=== PATIENT | male | born 1965 | race Caucasian/White ===

== ENCOUNTER → 2017-12-28 | Outpatient (CLI) | payer OTHER ==
[~2017-12-28] MED LIST: AMLO-99 PO; ATOR10TA24 PO; BLOO-1318 MC; BLOO-1337 MC; CEFU500T10 PO; HYDR-4309 PO; LANC-1149 MC; METO200T12 PO; MUPI15CR10 TP; NICO-218 TD; OMEP-125 PO; TRAM-420 PO; TRIA15CR40 TP; ZOLP-358 PO; [UNRECOGNIZED DRUG - CODE] PO
[2017-12-28 06:21] LABS: PLATELET COUNT, AUTOMATED 150 K/uL (150-450)
[2017-12-28 09:21] LABS: LDL CHOLESTEROL 54 mg/dl
== END ==
LOC: LAB 05:57
PROVIDERS: ATTEND Internal Medicine
DX: E11.9 Type 2 diabetes mellitus without complications (principal); E78.5 Hyperlipidemia, unspecified; N18.3 Chronic kidney disease, stage 3 (moderate); R09.02 Hypoxemia; R53.83 Other fatigue; E83.119 Hemochromatosis, unspecified; R94.5 Abnormal results of liver function studies
CPT/HCPCS: 36415; 82040; 82043; 82247; 82310; 82374; 82435; 82465; 82565; 82728; 82947; 83036; 83540; 83550; 83718; 84075; 84132; 84155; 84295; 84443; 84450; 84460; 84478; 84520; 85025

== ENCOUNTER 2018-05-14 16:15 | Outpatient (RCR) | payer OTHER ==
--- NOTE | 2018-05-04 09:02 | PT INITIAL EVALUATION ---
MEDICAL DIAGNOSIS: Bilateral Plantar Fasciitis TREATMENT DIAGNOSIS: Bilateral Plantar Fasciitis DATE OF ONSET: 01/04/18 SUBJECTIVE: Driss is a 52 year-old male presenting to physical therapy following 4 month onset of bilateral foot pain. Initially, pt went to a massage operator where he received steroid injections and was started on insoles. Pt reports that initially the pain got better, but then came back and now he can't even tolerate wearing his insoles. Pt reports that he also was given some stretches, but didn't do his homework very often. Pt reports that pain is located bilaterally on the sole of his foot near the heel with pain worst in the L foot at 9-10/10 and in the R at 3-4/10. Pain is improved with icing and worsens with initiation of activity, or at the end of the day. Pain on the L is 5-6/10 at best and on the R is 1-2/10 at best never quite going away, always as a dull ache. 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 Pt has medial shift of L calcaneus on talus with increased rear foot inversion. ROM: Ankle ROM: DF: L 17, R 11, PF: L 39, R 33, Inv: L 25, R 35, Evr: L 8, R 20. Palpation: Pt is ttp at on the plantar aspect of B calcaneus and has moderate adhesions along the medial fascia on the L with mild adhesions on the R. Possible calcification or bone spur development is evident on the L near the calcaneus. Mobility: Pt has good foot mobility throughout on the R foot with medial restrictions on the L mid and rear foot. ASSESSMENT: Driss shows signs and symptoms consistent with bilateral plantar fasciitis L>R with likely contributing postural changes in the foot. Physical therapy is indicated for this patient to decrease pain and address the above listed deficits to return pt to prior level of function and full mobility with ADL's and work related activities. Short Term Goals In 3 weeks pt will decrease L foot pain to <5/10 with ADLs for improved function with walking and work related activities. In 4 weeks pt will improve B foot and ankle ROM to WFL for improved mobility with ADL's. In 6 weeks pt will decrease B foot pain to 0/10 and be compliant with HEP for improved function with ADL's. Patient's Goals Decrease foot pain. PLAN: Patient to be seen for Manual Therapy/STM/MET Strengthening/condition Ice/Heat Range of Motion Ultrasound Stretching Iontophoresis Neuromuscular Re-ed Closed Chain Program Electrical Stim Posture/Body mechanics Gait Trg/Balance Trg Biofeedback Home Exercise Program Mech./Manual Traction Therapeutic Activities 3x/Week for 6 Weeks If you have any questions, comments, or concerns about this report or plan, please contact me at . Thank you, Vidhi Bhatia, PT, DPT, CLT MTDD
[~2018-05-14 16:15] MED LIST changes: +DIPH0.5D12 IM
== END 2018-05-14 18:00 | disposition home or self-care (01) ==
LOC: PT 16:15
DX: M72.2 Plantar fascial fibromatosis (principal)
CPT/HCPCS: 97161

== ENCOUNTER → 2018-09-20 | Outpatient (CLI) | payer OTHER ==
[~2018-09-20] MED LIST changes: +AMLO-113 PO; -AMLO-99 PO; +FLU60VIA41 IM; -HYDR-4309 PO; +HYDR-653 PO
[2018-09-20 06:42] LABS: PLATELET COUNT, AUTOMATED 140 K/uL (150-450)
[2018-09-20 06:59] LABS: LDL CHOLESTEROL 56 mg/dl
== END ==
LOC: LAB 06:16
PROVIDERS: ATTEND Internal Medicine
DX: E11.9 Type 2 diabetes mellitus without complications (principal); E83.119 Hemochromatosis, unspecified; E78.5 Hyperlipidemia, unspecified; I10 Essential (primary) hypertension; R53.83 Other fatigue
CPT/HCPCS: 36415; 81001; 82040; 82247; 82310; 82374; 82435; 82465; 82565; 82947; 83036; 83718; 84075; 84132; 84155; 84295; 84443; 84450; 84460; 84478; 84520; 85025

== ENCOUNTER 2018-09-26 00:29 | Emergency (ER) | payer OTHER ==
--- NOTE | 2018-09-26 00:47 | ER Report ---
History and Physical Time Seen By MD: 00:33 HPI/ROS CHIEF COMPLAINT: Chest pain HISTORY OF PRESENT ILLNESS: 52-year-old male with a history of hypertension and type II diabetes, hypercholesterolemia presents to the ER with 5 hours of central chest pain, more to the right without shortness of breath nausea or diaphoresis. Patient notes no exertional component. Patient denies history of cardiac disease. Patient denies leg swelling or calf pain. REVIEW OF SYSTEMS: Respiratory: No cough, no dyspnea. Cardiovascular: As above Gastrointestinal: No vomiting, no abdominal pain. Musculoskeletal: No back pain. Allergies: Coded Allergies: No Known Drug Allergies (Unverified , 09/26/18) Home Meds Active Scripts Metoprolol Succinate (METOPROLOL SUCCINATE) 200 Mg Tab.er.24h, 1 TAB PO QDAY, #30 TAB Prov:LEORA CORBETT MD 09/22/18 Atorvastatin Calcium (LIPITOR) 10 Mg Tablet, 1 TAB PO QDAY, #30 TAB Prov:LEORA CORBETT MD 09/22/18 Amlodipine Besylate (AMLODIPINE BESYLATE) 10 Mg Tablet, 1 TAB PO QDAY, #30 TAB Prov:LEORA CORBETT MD 09/22/18 Omeprazole (OMEPRAZOLE) 20 Mg Capsule.dr, 2 CAP PO QDAY, #90 CAP 3 Refills Prov:LEORA CORBETT MD 02/08/18 Tramadol Hcl (TRAMADOL HCL) 50 Mg Tablet, 50 MG PO BID PRN for pain, #60 TAB 2 Refills Prov:LEORA CORBETT MD 12/28/17 Reviewed Nurses Notes: Yes Old Medical Records Reviewed: Yes Hx Smoking: Yes (1/2 PPD X 20+ YRS) Smoking Status: Current: Every Day Smoker Hx Alcohol Use: No Constitutional Vital Sign - Last 24 Hours 09/26/18 09/26/18 09/26/18 09/26/18 00:29 00:32 00:34 00:59 Pulse ??? 56 52 Resp 18 15 B/P (MAP) 173/102 (125) 173/102 Pulse Ox 97 98 O2 Delivery Room Air 09/26/18 09/26/18 09/26/18 09/26/18 01:05 01:59 02:00 02:29 Pulse 55 54 Resp 12 12 B/P (MAP) 130/83 (99) 121/75 (90) Pulse Ox 91 90 09/26/18 09/26/18 09/26/18 02:30 02:59 03:00 Pulse 62 58 Resp 36 73 B/P (MAP) 118/71 (87) 107/72 (84) Pulse Ox 90 Physical Exam General Appearance: The patient is alert, has no immediate need for airway protection and no current signs of toxicity. Vital signs stable, afebrile, pulse ox normal HEENT: Pupils equal and round no injection. Oropharynx without erythema or redness, no exudate Respiratory: Chest is non tender, lungs are clear to auscultation. Cardiac: regular rate and rhythm Gastrointestinal: Abdomen is soft and non tender, no masses, bowel sounds normal. Musculoskeletal: Neck: Neck is supple and non tender. Extremities have full range of motion and are non tender. Skin: No rashes or lesions. DIFFERENTIAL DIAGNOSIS: After history and physical exam differential diagnosis was considered for chest pain including but not limited to myocardial ischemia, pericarditis pulmonary embolus, chest wall pain, pleural inflammation and pulmonary infectious causes. Medical Decision Making Data Points Result Diagram: 09/26/18 0042 09/26/18 0042 Laboratory Hematology Test 09/26/18 00:42 Red Blood Count 5.30 M/uL (4.00-5.60) Mean Corpuscular Volume 88.1 fL (80.0-96.0) Mean Corpuscular Hemoglobin 29.7 pg (26.0-33.0) Mean Corpuscular Hemoglobin Concent 33.7 g/dL (32.0-36.0) Red Cell Distribution Width 13.5 % (11.5-14.5) Mean Platelet Volume 10.5 fL (7.2-11.1) Neutrophils (%) (Auto) 57.7 % (39.4-72.5) Lymphocytes (%) (Auto) 30.1 % (17.6-49.6) Monocytes (%) (Auto) 9.0 % (4.1-12.4) Eosinophils (%) (Auto) 2.6 % (0.4-6.7) Basophils (%) (Auto) 0.6 % (0.3-1.4) Nucleated RBC Relative Count (auto) 0.1 /100WBC Neutrophils # (Auto) 4.7 K/uL (2.0-7.4) Lymphocytes # (Auto) 2.5 K/uL (1.3-3.6) Monocytes # (Auto) 0.7 K/uL (0.3-1.0) Eosinophils # (Auto) 0.2 K/uL (0.0-0.5) Basophils # (Auto) 0.1 K/uL (0.0-0.1) Nucleated RBC Absolute Count (auto) 0.01 K/uL D-Dimer Quantitative (PE/DVT) 0.57 ug/ml (0-0.50) Sodium Level 140 mmol/L (137-145) Potassium Level 3.7 mmol/L (3.5-5.0) Chloride Level 103 mmol/L (98-107) Carbon Dioxide Level 27 mmol/L (22-30) Blood Urea Nitrogen 10 mg/dl (9-21) Creatinine 0.90 mg/dl (0.66-1.25) Glomerular Filtration Rate Calc > 60.0 Random Glucose 181 mg/dl (75-110) Calcium Level 8.9 mg/dl (8.4-10.2) Total Bilirubin 0.3 mg/dl (0.2-1.3) Aspartate Amino Transf (AST/SGOT) 30 U/L (0-35) Alanine Aminotransferase (ALT/SGPT) 51 U/L (0-56) Alkaline Phosphatase 87 U/L (0-126) Troponin I < 0.012 ng/ml B-Type Natriuretic Peptide 12 pg/ml (0-100) Total Protein 7.6 g/dl (6.3-8.2) Albumin 4.2 g/dl (3.5-5.0) Lipase 165 U/L (23-300) Chemistry Test 09/26/18 00:42 White Blood Count 8.1 k/uL (4.5-11.0) Red Blood Count 5.30 M/uL (4.00-5.60) Hemoglobin 15.7 g/dL (14.0-18.0) Hematocrit 46.7 % (42.0-52.0) Mean Corpuscular Volume 88.1 fL (80.0-96.0) Mean Corpuscular Hemoglobin 29.7 pg (26.0-33.0) Mean Corpuscular Hemoglobin Concent 33.7 g/dL (32.0-36.0) Red Cell Distribution Width 13.5 % (11.5-14.5) Platelet Count 154 K/uL (150-450) Mean Platelet Volume 10.5 fL (7.2-11.1) Neutrophils (%) (Auto) 57.7 % (39.4-72.5) Lymphocytes (%) (Auto) 30.1 % (17.6-49.6) Monocytes (%) (Auto) 9.0 % (4.1-12.4) Eosinophils (%) (Auto) 2.6 % (0.4-6.7) Basophils (%) (Auto) 0.6 % (0.3-1.4) Nucleated RBC Relative Count (auto) 0.1 /100WBC Neutrophils # (Auto) 4.7 K/uL (2.0-7.4) Lymphocytes # (Auto) 2.5 K/uL (1.3-3.6) Monocytes # (Auto) 0.7 K/uL (0.3-1.0) Eosinophils # (Auto) 0.2 K/uL (0.0-0.5) Basophils # (Auto) 0.1 K/uL (0.0-0.1) Nucleated RBC Absolute Count (auto) 0.01 K/uL D-Dimer Quantitative (PE/DVT) 0.57 ug/ml (0-0.50) Glomerular Filtration Rate Calc > 60.0 Calcium Level 8.9 mg/dl (8.4-10.2) Total Bilirubin 0.3 mg/dl (0.2-1.3) Aspartate Amino Transf (AST/SGOT) 30 U/L (0-35) Alanine Aminotransferase (ALT/SGPT) 51 U/L (0-56) Alkaline Phosphatase 87 U/L (0-126) Troponin I < 0.012 ng/ml B-Type Natriuretic Peptide 12 pg/ml (0-100) Total Protein 7.6 g/dl (6.3-8.2) Albumin 4.2 g/dl (3.5-5.0) Lipase 165 U/L (23-300) Coagulation Test 09/26/18 00:42 D-Dimer Quantitative (PE/DVT) 0.57 ug/ml EKG/Imaging EKG Interpretation 12 lead EK Rhythm: Sinus bradycardia, rate 55 bpm, patient's on a beta unique [place]: normal QRS: normal ST segments: normal, no evidence of ischemia or dysrhythmia Imaging Results: CT scan of the CTA pulmonary angiogram was obtained. The results of the study are CT PE DATE: 09/26/2018 2:50 AM INDICATION: Chest pain, elevated d-dimer. COMPARISON: Chest radiographs 06/27/2010. TECHNIQUE: Axial CT angiogram was obtained through the chest with intravenous contrast. Sagittal and coronal MPR and MIP coronal reformations were also generated. 75 mL isovue 370. One of the following dose optimization techniques was utilized in the performance of this exam: Automated exposure control; adjustment of the mA and/or kV according to the patient's size; or use of an iterative reconstruction technique. Specific details can be referenced in the facility's radiology CT exam operational policy. FINDINGS: Thyroid / Thoracic Inlet: No visualized thyroid nodule or supraclavicular lymphadenopathy. Pulmonary Arteries: Normal. Heart and Aorta: Upper limit normal size heart with no pericardial effusion. Nonaneurysmal thoracic aorta. Mediastinum and [place]: No lymphadenopathy. Lungs and Pleura: No pleural effusion or pneumothorax. Minimal atelectasis. No suspicious consolidation. 4 mm right upper lobe nodule on image 83 series 4. Breast and Axilla: No axillary lymphadenopathy. Mild gynecomastia. Upper Abdomen: No visualized acute abnormality. Bones and Soft Tissues: No suspicious osseous or soft tissue abnormality. Hemangioma in the body of T5. IMPRESSION: 1. No pulmonary embolism or other acute abnormality. 2. 4 mm right upper lobe pulmonary nodule. Current Fleischner Society recommendations for incidental pulmonary nodules <6mm in size (average of long and short axis): - In a patient with low risk for malignancy (i.e., minimal or absent smoking h istory, no known malignancy or other risk factors): No routine follow-up. - In a patient at high risk for malignancy (e.g., smoking history and/or other known risk factors): Optional noncontrast CT at 12 months. If unchanged no further follow-up necessary. Nodules less than 6 mm do not require routine follow-up, but certain patients at high risk with suspicious nodule morphology, upper lobe location, or both may warrant 12 month follow-up. Jamir H, Kamila D, Toni J, et al. Guidelines for management of small pulmonary nodules detected on CT images: from the Fleischner society 2017. The study was read by the radiologist. I viewed the images myself on the PACS system. ED Course/Re-evaluation Clinical Indication for ER IV: IV Access ED Course Patient was admitted to the examination room. H&P was done. The differential diagnosis was considered. Patient with chest pain for several hours. Diagnostic studies were ordered. His EKG is unremarkable. He has several risk factors. Her troponin was unremarkable. The d-dimer was elevated. We proceeded to CT scan pulmonary angiogram to rule out pulmonary embolism as the cause. A 4 mm pulmonary nodule was noted. Patient's chest pain is resolved with Toradol and fentanyl. ER. He has a scheduled appointment with Dr. Corbett his primary care physician in 2 days for recheck of his blood pressure medication and other health issues. Decision to Disposition Date: Sep 26, 2018 Decision to Disposition Time: 03:07 Depart Departure Latest Vital Signs Vital Signs Date Time Temp Pulse Resp B/P (MAP) Pulse Ox O2 Delivery O2 Flow Rate FiO2 09/26/18 03:00 58 73 107/72 (84) 90 09/26/18 00:34 Room Air Impression: Primary Impression: Chest pain Additional Impressions: Hypertension Incidental pulmonary nodule Condition: Improved Disposition: HOME OR SELF-CARE Referrals: LEORA CORBETT MD (PCP) Patient Instructions: Chest Pain (ED) Additional Instructions: Take ibuprofen 200 mg 2-3 tablets 3 times a day Follow up with your primary care doctor as planned Problem Qualifiers Primary Impression: Chest pain Chest pain type: unspecified Qualified Codes: R07.9 - Chest pain, unspecified Additional Impressions: Hypertension Hypertension type: essential hypertension Qualified Codes: I10 - Essential (primary) hypertension JOSLYN SIMMONS DO Sep 26, 2018 00:47
[2018-09-26] MEDS ORDERED: fentaNYL CITR 100 MCG/2 ML AMP IVP ONE (00:50)
[2018-09-26] MEDS ORDERED: ASPIRIN 81 MG CHEW PO ONE (00:50)
[2018-09-26] MEDS ORDERED: KETOROLAC 30 MG/ML VIAL IVP ONE (00:50)
[2018-09-26 01:01] LABS: PLATELET COUNT, AUTOMATED 154 K/uL (150-450)
[2018-09-26] MEDS ORDERED: ONDANSETRON 4 MG/2 ML VIAL ONE (01:03)
--- NOTE | 2018-09-26 01:14 | EKG ---
FACILITY: [facility] PATIENT NAME: MAME LEBLANC : [id number] MR: [id number] V: [id number] EXAM DATE: ORDERING PHYSICIAN: JOSLYN SIMMONS TECHNOLOGIST: BISMARK Gregory Reason : Blood Pressure : / mmHG Vent. Rate : 055 BPM Atrial Rate : 055 BPM P-R Int : 184 ms QRS Dur : 100 ms QT Int : 414 ms P-R-T Axes : 035 058 045 degrees QTc Int : 396 ms Sinus bradycardia Nonspecific ST findings - similar to previous EKG When compared with ECG of 07-AUG-2017 07:57, No significant change was found Confirmed by AMILCAR MILLER ([id number]) on 09/26/2018 6:39:13 AM Referred By: Confirmed By:AMILCAR MILLER
[2018-09-26] MEDS ORDERED: IOPAMIDOL 76% 75 ML INFUS BTL 75 ML ONE (01:27)
[2018-09-26] MEDS ORDERED: NS(*) 0.9% 50 ML BAG 50 ML ONE (01:27)
[2018-09-26 03:00] VITALS: BP 107/72
--- NOTE | 2018-09-26 03:31 | RADIOLOGY IMAGING REPORT ---
FACILITY: [facility] - [place] PATIENT NAME: Driss Gore : 1965 MR: [id number] V: [id number] EXAM DATE: [id number] ORDERING PHYSICIAN: JOSLYN BENOIT TECHNOLOGIST: Location: [facility] - [place] Patient: Driss Gore : 1965 Visit/Account:[id number] Date of Sevice: 09/26/2018 CT PE DATE: 09/26/2018 2:50 AM INDICATION: Chest pain, elevated d-dimer. COMPARISON: Chest radiographs 06/27/2010. TECHNIQUE: Axial CT angiogram was obtained through the chest with intravenous contrast. Sagittal an d coronal MPR and MIP coronal reformations were also generated. 75 mL isovue 370. One of the follow ing dose optimization techniques was utilized in the performance of this exam: Automated exposure con trol; adjustment of the mA and/or kV according to the patient's size; or use of an iterative reconst ruction technique. Specific details can be referenced in the facility's radiology CT exam operationa l policy. FINDINGS: Thyroid / Thoracic Inlet: No visualized thyroid nodule or supraclavicular lymphadenopathy. Pulmonary Arteries: Normal. Heart and Aorta: Upper limit normal size heart with no pericardial effusion. Nonaneurysmal thoracic aorta. Mediastinum and [place]: No lymphadenopathy. Lungs and Pleura: No pleural effusion or pneumothorax. Minimal atelectasis. No suspicious consolid ation. 4 mm right upper lobe nodule on image 83 series 4. Breast and Axilla: No axillary lymphadenopathy. Mild gynecomastia. Upper Abdomen: No visualized acute abnormality. Bones and Soft Tissues: No suspicious osseous or soft tissue abnormality. Hemangioma in the body of T5. IMPRESSION: 1. No pulmonary embolism or other acute abnormality. 2. 4 mm right upper lobe pulmonary nodule. Current Fleischner Society recommendations for incidenta l pulmonary nodules <6mm in size (average of long and short axis): - In a patient with low risk for malignancy (i.e., minimal or absent smoking history, no known malig puma or other risk factors): No routine follow-up. - In a patient at high risk for malignancy (e.g., smoking history and/or other known risk factors): Optional noncontrast CT at 12 months. If unchanged no further follow-up necessary. Nodules less than 6 mm do not require routine follow-up, but certain patients at high risk with suspi cious nodule morphology, upper lobe location, or both may warrant 12 month follow-up. Jamir H, Kamila D, Toni J, et al. Guidelines for management of small pulmonary nodules detected on CT images: from the Fleischner society 2017. Dr. Fishman discussed this case with Dr. Benoit on 09/26/2018 3:03 AM. Report generation delayed by t echnical issues. Report Dictated By: Gabino Fishman MD at 09/26/2018 3:25 AM Report E-Signed By: Gabino Fishman MD at 09/26/2018 3:28 AM WSN:[id number]
[2018-09-27] MEDS ORDERED: METF500T4 PO (15:47)
[2018-09-27] MEDS ORDERED: METO200T12 PO (15:47)
[2018-09-27] MEDS ORDERED: ATOR10TA24 PO (15:47)
[2018-09-27] MEDS ORDERED: OMEP-125 PO (15:47)
[2018-09-27] MEDS ORDERED: AMLO-113 PO (15:47)
== END 2018-09-26 03:13 | disposition home or self-care (01) ==
LOC: ER 00:29
DX: R07.89 Other chest pain (principal); I10 Essential (primary) hypertension; E11.9 Type 2 diabetes mellitus without complications; R91.1 Solitary pulmonary nodule; R00.1 Bradycardia, unspecified
CPT/HCPCS: 71275; 83690; 83880; 84484; 85025; 85379; 93005; 96374; 96375; 99284; J1885; J2405; J3010; J7050; Q9967; 82040; 82247; 82310; 82374; 82435; 82565; 82947; 84075; 84132; 84155; 84295; 84450; 84460; 84520

== ENCOUNTER 2018-10-19 16:15 | Outpatient (RCR) | payer OTHER ==
--- NOTE | 2018-10-01 18:38 | PT INITIAL EVALUATION ---
MEDICAL DIAGNOSIS: Plantar Fasciitis TREATMENT DIAGNOSIS: Bilateral Cuboid Syndrome, Abnormality of Gait DATE OF ONSET: 09/28/18 SUBJECTIVE: Driss is a 52 year old male presenting to physical therapy following recent onset of B foot pain. Pain started following increasing time standing on feet with return to work. Pain is located on the lateral aspect of B feet on the bottom and increases with standing. Pain is greater on the L rated as 9/10 where occasionally he cannot WB on the foot, it also feels like he has a rock in his shoe sometimes where it hurts. Pain on the R is only 2-3/10. Pt has a history of plantar fasciitis and has stiffness in the morning that he thinks is from that. Pt frequently switches his shoes but it doesn't seem to change his pain. 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 OBJECTIVE: ROM: Ankle ROM (R, L): DF: 15, 15, PF: 35, 42, Inv: 67, 70 with lateral foot pain, Ever: 18, 18. Strength: Ankle MMT (R, L): PF: 5/5, 4-/5 with pain on lateral foot and decreased balance, all other motions 5/5 Palpation: Pt is tender to palpation at the base of the 5th met on the L foot and on B cuboids. Pt had decreased foot mobility on the L mid foot. Sensation: Sensation intact to light touch B. Special Tests: Cuboid shear test (+) B. Gait: Pt ambulates with slightly everted L foot with decreased stance phase ASSESSMENT: Driss shows signs and symptoms consistent with B cuboid syndrome. Physical therapy is indicated to address the above listed deficits to improve pt function with ADL's and occupational demands. Short Term Goals In 4 weeks pt will increase B PF strength to 5/5 for improved function with ADL's. In 4 weeks pt will have full ROM without pain for improved function with ADL's. In 4 weeks pt will return to full occupational and recreational activities without pain. Patient's Goals Decrease foot pain B. PLAN: Patient to be seen for Manual Therapy/STM/MET Strengthening/condition Ice/Heat Range of Motion Stretching Neuromuscular Re-ed Closed Chain Program Posture/Body mechanics Gait Trg/Balance Trg Home Exercise Program [facility]./Manual Traction Therapeutic Activities 3x/Week for 4 Weeks If you have any questions, comments, or concerns about this report or plan, please contact me at . Thank you, Vidhi Bhatia, PT, DPT, CLT MTDD
[~2018-10-19 16:15] MED LIST changes: +METF500T4 PO
== END 2018-10-19 18:00 | disposition home or self-care (01) ==
LOC: PT 16:15
PROVIDERS: ATTEND Internal Medicine
DX: M72.2 Plantar fascial fibromatosis (principal); R26.89 Other abnormalities of gait and mobility
CPT/HCPCS: 97162

== ENCOUNTER → 2018-10-26 | Outpatient (CLI) | payer OTHER ==
--- NOTE | 2018-10-26 12:11 | RADIOLOGY IMAGING REPORT ---
FACILITY: [facility] PATIENT NAME: Driss Gore : 1965 MR: [id number] V: [id number] EXAM DATE: [id number] ORDERING PHYSICIAN: LEORA BRADLEY TECHNOLOGIST: Location: [facility] - [place] Patient: Driss Gore : 1965 Visit/Account:[id number] Date of Sevice: 10/26/2018 EXERCISE MYOCARDIAL PERFUSION IMAGING Single Isotope SPECT Imaging with Exercise and Gated SPECT Imaging DATE OF EXAMINATION: October 26, 2018 REQUESTING PHYSICIAN: MIRNA INDICATION: Chest pain hypertension history of TIAs in the family PROCEDURE: After informed consent the patient received an intravenous injection of Tc-99m sestamibi followed at the appropriate time interval by rest imaging. The patient then exercised according to the standard Momo protocol for nine minutes 50 seconds achieving 11 METS. Resting heart rate was 59 bpm with a peak heart rate of 142 bpm which is 85 % of maximal predicted heart rate for age. Blood pressure at rest was 145/95; blood pressure during exercise was 194/85. There was no chest pain dur ing exercise. Exercise was discontinued because of fatigue. Baseline EKG demonstrates sinus rhythm. There were no EKG changes of ischemia at peak exercise. Approximately one minute and 30 seconds pr ior to the termination of exercise, the patient received an intravenous injection of Tc-99m sestamibi followed by stress imaging. DOSE of Tc-99m sestamibi: REST: 12.1 STRESS: 29.1 RAW DATA: Examination of the summed raw data revealed a excellent quality study. MYOCARDIAL PERFUSION: The tomographic images demonstrate normal myocardial perfusion without evidenc e of myocardial ischemia or infarct GATED IMAGES: The gated images demonstrate normal LV systolic performance and wall motion with LVEF 70%. IMPRESSION: 1. Good exercise tolerance without chest pain or ischemic EKG changes noted 2. Normal myocardial perfusion study without evidence of myocardial ischemia or infarct 3. Normal LV systolic performance and wall motion with LVEF 70% Report Dictated By: Gabriel Oneal at 10/26/2018 12:03 PM Report E-Signed By: Gabriel Oneal at 10/26/2018 12:06 PM WSN:[id number]
--- NOTE | 2018-10-28 17:12 | RT STRESS TEST REPORT ---
FACILITY: [facility] - [place] PATIENT NAME: MAME LEBLANC : [id number] MR: [id number] V: [id number] EXAM DATE: ORDERING PHYSICIAN: LEORA BRADLEY TECHNOLOGIST: Olivier Acquisition Time: 2018-10-26 09:36:49 Total Exercise Time: 00:09:50 Test Indications: CHEST PAIN Medications: SEE NUCLEAR MED SHEET Protocol: MANDY 2 Max HR: 142 BPM 85% of Pred: 166 BPM Max BP: 194/085 mmHG Max Work Load: 10.4 METS Impression No EKG changes to suggest ischemia Nuclear medicine report to follow Confirmed by LEORA BRADLEY ([id number]) on 10/28/2018 5:13:43 PM Referred By: Overread By: LEORA BRADLEY
== END ==
LOC: NUC 00:36
PROVIDERS: ATTEND Internal Medicine
DX: I10 Essential (primary) hypertension (principal); E11.9 Type 2 diabetes mellitus without complications; E78.5 Hyperlipidemia, unspecified; R07.9 Chest pain, unspecified
CPT/HCPCS: 78452; 93017; A9500

== ENCOUNTER 2018-12-09 17:15 | Outpatient (RCR) | payer OTHER ==
--- NOTE | 2018-11-18 11:36 | PT INITIAL EVALUATION ---
MEDICAL DIAGNOSIS: Plantar Fascitis TREATMENT DIAGNOSIS: Left Cuboid Syndrome, Abnormal Foot Posture DATE OF ONSET: 11/18/18 SUBJECTIVE: Driss is a 53 year old male presenting to physical therapy following recent return of lateral L foot pain. Pt was previously treated in PT for cuboid syndrome and pt reports that it feels like it did then, but not as extreme. Pt reports pain after standing all day, and with push off going up stairs. Pt reports that he tried to self tape, which helps with the pain, but that it did not stay on as well. REHAB PROBLEM LIST: Increased Pain Decreased ROM Decreased Strength Decreased Endurance Decreased Function Decreased ADL's Decreased Mobility PREVIOUS MEDICAL HISTORY: See EMR OBJECTIVE: Posture: Foot posture significant for B feet at rest in inversion ROM: Ankle ROM (L,R): PF: 35, 55, DF: 16, 14, Inv: 65 with pain, 55, Sterling: 18, 29 Strength: Ankle MMT (L,R): PF: 4/5 with pain, 4+/5, all other 5/5 without pain. Palpation: Pt is tender to palpation on the plantar and lateral aspect of the foot along the cuboid Special Tests: Cuboid shear test (+) L ASSESSMENT: Driss shows signs and symptoms consistent with L cuboid syndrome. Physical therapy is indicated to address the above listed deficits to improve pt function with ADL's and occupational activities. Short Term Goals In 2 weeks pt will increase L foot and ankle ROM to equal to that of the contralateral side. In 4 weeks pt will increase PF strength of the L foot and ankle to equal to 4+/5 without pain for improved function with ADL's. In 4 weeks pt will be compliant with HEP for maintenance of function with ADL's. Patient's Goals Decrease pain and improve function. PLAN: Patient to be seen for Manual Therapy/STM/MET Strengthening/condition Ice/Heat Range of Motion Stretching Neuromuscular Re-ed Closed Chain Program Posture/Body mechanics Gait Trg/Balance Trg [facility]Manual Traction Therapeutic Activities 2x/Week for 4 Weeks If you have any questions, comments, or concerns about this report or plan, please contact me at . Thank you, Vidhi Bhatia, PT, DPT, CLT [facility]
[~2018-12-09 17:15] MED LIST changes: -AMLO-113 PO; +AMLO-127 PO
[2018-12-16] MEDS ORDERED: TRAM-420 PO (15:20)
[2018-12-16] MEDS ORDERED: MELO-207 PO (15:20)
[2018-12-17] MEDS ORDERED: TRAM-420 PO (09:16)
--- NOTE | 2018-12-30 07:24 | PT PLAN OF CARE ---
Physician: Duong Corbett MD Patient is being seen: 2x/Week Therapist: Vidhi Bhatia, PT, DPT, CLT Medical Diagnosis: Plantar Fascitis Treatment Diagnosis: Left Cuboid Syndrome, Abnormal Foot Posture Date of Onset: 11/18/18 Date of Initial Evaluation: 11/17/18 Date patient was last seen: 12/17/18 Number of treatments: 8 Number of cancellations/No shows: 2 INTERVENTIONS: Manual Therapy/STM/MET Strengthening/condition Ice/Heat Range of Motion Stretching Neuromuscular Re-ed Closed Chain Program Posture/Body mechanics Gait Trg/Balance Trg Home Exercise Program Mech./Manual Traction Therapeutic Activities GOALS: In 2 weeks pt will increase L foot and ankle ROM to equal to that of the contralateral side. MET In 4 weeks pt will increase PF strength of the L foot and ankle to equal to 4+/5 without pain for improved function with ADL's. MET In 4 weeks pt will be compliant with HEP for maintenance of function with ADL's. MET PATIENT'S GOAL: Decrease pain and improve function. Status of Patient's Goals: 3/3 MET Patient Compliance: Good Prognosis: Good Reasons for discharge from therapy: Driss is to discharge from physical therapy at this time secondary to completion of 3/3 functional goals. At the time of discharge pt reported no longer any foot pain and was compliant with self wrapping and HEP performance for maintenance of status. Pt was able to demonstrate full return to function with ambulation up and down stairs and prolonged standing at work without onset of pain. Driss is to seek further treatment if pain returns at a later time. ROM: Ankle ROM (L,R): PF: 40, 45, DF: 16, 14, Inv: 65, 55, Sterling: 20, 23 Strength: Ankle MMT (L,R): all 5/5 without pain. If you have any questions or concerns, please feel free to contact me at [phone]. Thank you, Vidhi Bhatia, PT, DPT, CLT [facility]
== END 2018-12-09 18:00 | disposition home or self-care (01) ==
LOC: PT 17:15
PROVIDERS: ATTEND Internal Medicine
DX: M72.2 Plantar fascial fibromatosis (principal); R29.3 Abnormal posture; M79.672 Pain in left foot
CPT/HCPCS: 97161

== ENCOUNTER 2019-01-06 17:33 | Emergency (ER) | payer OTHER ==
[~2019-01-06 17:33] MED LIST changes: +MELO-207 PO
[2019-01-06] MEDS ORDERED: PROPARACAI/FLUORESCEIN 5 ML OP DROPS OP ONE (18:00)
--- NOTE | 2019-01-06 18:09 | ER Report ---
History and Physical Time Seen By : 18:09 Hx. of Stated Complaint: patient states 20min ago he was working on his car when he thinks that he got some metal in his right eye; states that he tried flushing it out and it did not get better HPI/ROS CHIEF COMPLAINT: possible metal in eye, eye irritation HISTORY OF PRESENT ILLNESS: This is a 53 year old male. He was working under a vehicle, [employer] hitch, had what he thought was a piece of metal in his eye. He flushed it using some saline in eye cups, no improvement. Right eye, red, irritated. Normal vision. No history of eye problems. Allergies: Coded Allergies: No Known Drug Allergies (Unverified , 09/26/18) Home Meds Active Scripts Tramadol Hcl (TRAMADOL HCL) 50 Mg Tablet, 50 MG PO QID PRN for pain, #28 TAB Prov:LEORA BRADLEY MD 12/17/18 Meloxicam (MELOXICAM) 15 Mg Tablet, 15 MG PO QDAY PRN for pain, #30 TAB 3 Refills Prov:LEORA BRADLEY MD 12/16/18 Metformin Hcl (METFORMIN HCL ER) 500 Mg Tab.er.24, 1 TAB PO QDAY, #30 TAB 6 Refills Prov:LEORA BRADLEY MD 09/27/18 Metoprolol Succ 200 Mg Xl Tab (METOPROLOL SUCCINATE 200 MG) 200 Mg Tab.er.24h, 1 TAB PO QDAY, #90 TAB 3 Refills Prov:LEORA BRADLEY MD 09/27/18 Atorvastatin Calcium (LIPITOR) 10 Mg Tablet, 1 TAB PO QDAY, #90 TAB 3 Refills Prov:LEORA BRADLEY MD 09/27/18 Amlodipine Besylate (AMLODIPINE BESYLATE) 10 Mg Tablet, 1 TAB PO QDAY, #90 TAB 3 Refills Prov:LEORA BRADLEY MD 09/27/18 Omeprazole (OMEPRAZOLE) 20 Mg Capsule.dr, 1 CAP PO QDAY, #90 CAP 3 Refills Prov:LEORA BRADLEY MD 09/27/18 Reviewed Nurses Notes: Yes Hx Smoking: Yes (1/2 PPD X 20+ YRS) Smoking Status: Current: Every Day Smoker Hx Substance Use Disorder: No Hx Alcohol Use: No Constitutional Vital Sign - Last 24 Hours 01/06/19 01/06/19 01/06/19 01/06/19 17:37 17:38 18:03 18:33 Temp 97.6 Pulse 55 54 51 Resp 17 B/P (MAP) 130/91 (104) 130/91 Pulse Ox 91 90 92 O2 Delivery Room Air 01/06/19 01/06/19 01/06/19 18:51 19:00 19:03 Pulse 52 B/P (MAP) 135/90 (105) 136/84 (101) Pulse Ox 93 Physical Exam General Appearance: Alert, no distress. Used Proparacaine/flucaine 0.5% drops to numb the right eye. Eyes: Pupils equal, round and reactive to light. No pallor. No scleral icterus. Right eye with moderate injection. There is no discharge. Examination, including under the upper lid, reveals no foreign body. Fluorescein exam reveals no uptake. Skin: Periorbital skin is not inflamed. DIFFERENTIAL DIAGNOSIS: After history and physical exam differential diagnosis was considered for a red eye including but not limited to foreign body, conjunctivitis, iritis and corneal abrasion. Medical Decision Making ED Course/Re-evaluation ED Course Irrigation with a liter of normal saline. Given Tobradex drops to use 4 times a day for 5 days. Decision to Disposition Date: Jan 06, 2019 Decision to Disposition Time: 19:19 Depart Departure Latest Vital Signs Vital Signs Date Time Temp Pulse Resp B/P (MAP) Pulse Ox O2 Delivery O2 Flow Rate FiO2 01/06/19 19:03 52 93 01/06/19 19:00 136/84 (101) 01/06/19 17:38 97.6 17 Room Air Impression: Primary Impression: Sensation of foreign body in eye Condition: Improved Disposition: HOME OR SELF-CARE Referrals: LEORA BRADLEY MD (PCP) Patient Instructions: Eye Foreign Body (ED) Additional Instructions: We did not see a foreign body in the right eye, but suspect your pain and irritation in the eye is due to foreign material that is now gone. Use TobraDex eye drops, 1 drop in the right eye 4 times a day for 5 days. If pain persists, we would recommend follow-up with an sports marketing specialist for re- evaluation early next week. ILIA SWARTZ MD Jan 06, 2019 18:09
[2019-01-06 19:00] VITALS: BP 136/84
[2019-01-06] MEDS ORDERED: TOBRAMYCIN/DEX OP SUSP 2.5 ML OD ONE (19:20)
== END 2019-01-06 19:33 | disposition home or self-care (01) ==
LOC: ER 18:12
DX: T15.91XA Foreign body on external eye, part unspecified, right eye, initial encounter (principal)
CPT/HCPCS: 99282

== ENCOUNTER → 2019-03-07 | Outpatient (CLI) | payer OTHER ==
--- NOTE | 2019-03-07 17:17 | RADIOLOGY IMAGING REPORT ---
FACILITY: [facility] - [place] PATIENT NAME: Driss Gore : 1965 MR: [id number] V: [id number] EXAM DATE: ORDERING PHYSICIAN: TATYANA MCGILL TECHNOLOGIST: [place] [facility] [place] Patient: Driss Gore : 1965 Visit/Account:[id number] Date of Sevice: 03/07/2019 Exam type: SHOULDER MIN 2 VIEWS RIGHT History: Right shoulder pain x1 month Comparison: None. Findings: Four views of the right shoulder demonstrate no evidence of acute fracture or dislocation. There are mild degenerative changes at the right AC joint. No significant degenerative change identified at t he right glenohumeral joint. IMPRESSION: 1. Mild degenerative changes of the right AC joint. If pain continues MR may be helpful Report Dictated By: Cinthia Queen MD at 03/07/2019 5:11 PM Report E-Signed By: Cinthia Queen MD at 03/07/2019 5:12 PM WSN:[email or web address]
== END ==
LOC: RAD 16:48
PROVIDERS: ATTEND Orthopaedic Surgery
DX: M25.511 Pain in right shoulder (principal)

== ENCOUNTER → 2019-03-15 | Outpatient (CLI) | payer OTHER ==
[~2019-03-15] MED LIST changes: -DIPH0.5D12 IM; +DIPH0.5S2 IM
--- NOTE | 2019-03-15 14:47 | RADIOLOGY IMAGING REPORT ---
FACILITY: [facility] PATIENT NAME: Driss Gore : 1965 MR: [id number] V: [id number] EXAM DATE: [id number] ORDERING PHYSICIAN: TATYANA MCGILL TECHNOLOGIST: Location: [facility] Patient: Driss Gore : 1965 Visit/Account:[id number] Date of Sevice: 03/15/2019 MRI right shoulder without contrast Indication: Shoulder pain. Limited range of motion. Comparison: Plain film examination 03/07/2019 is reviewed. Technique: Multiplanar, multisequence MRI examination is performed of the right shoulder without cont rast. FINDINGS: There is a type 1 acromion. There are moderate changes of acromioclavicular joint osteoarthritis with inferiorly directed distal clavicular osteophytes. There are mild changes of glenohumeral joint oste oarthritis identified. Abnormal chondrolabral tearing is seen to involve the glenoid labrum. This is seen to involve the upper posterior labrum which extends to the inferior labrum. There is felt to be involvement of the anterior-inferior labrum as well. Small round focus of bright T2 signal is seen wi thin the soft tissues along the inferior joint capsule which measures 7 mm. This could be a para labr al cyst which has extended inferiorly. There is a small glenohumeral joint effusion. Examination of the rotator cuff demonstrates mild supraspinatus insertional tendinopathy. No discrete tear is seen. Infraspinatus insertion is intact. There is mild subscapularis insertional tendinopath y with intrasubstance tearing at the superior insertion. The long head biceps tendon is seen within t he bicipital groove and the insertion upon the glenoid is intact. There is a small amount of fluid within the subacromial-subdeltoid bursa. Rotator cuff musculature is normal in bulk. No atrophy seen. IMPRESSION: 1. Mild right shoulder supraspinatus insertional tendinopathy without evidence of focal tear. 2. Mild subscapularis insertional tendinopathy with intrasubstance tearing at the superior insertion. 3. Extensive chondrolabral tearing of the right shoulder glenoid labrum involving the posterior labru m, the inferior labrum and the anterior-inferior labrum. Suspected 6 mm para labral cyst inferior to the 6:00 position. 4. 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 5. Subacromial-subdeltoid bursitis. Report Dictated By: Roderick Cardona at 03/15/2019 2:35 PM Report E-Signed By: Roderick Cardona at 03/15/2019 2:44 PM WSN:[id number]
== END ==
LOC: MRI 01:12
PROVIDERS: ATTEND Orthopaedic Surgery
DX: M19.011 Primary osteoarthritis, right shoulder (principal); M75.51 Bursitis of right shoulder

== ENCOUNTER → 2019-03-29 | Outpatient (CLI) | payer OTHER ==
[2019-03-29 11:52] LABS: PLATELET COUNT, AUTOMATED 161 K/uL (150-450)
[2019-03-29 12:14] LABS: LDL CHOLESTEROL 50 mg/dl
== END ==
LOC: LAB 11:27
PROVIDERS: ATTEND Internal Medicine
DX: E78.5 Hyperlipidemia, unspecified (principal); E11.9 Type 2 diabetes mellitus without complications; I10 Essential (primary) hypertension; E83.119 Hemochromatosis, unspecified
CPT/HCPCS: 36415; 81001; 82040; 82247; 82310; 82374; 82435; 82465; 82565; 82728; 82947; 83036; 83540; 83550; 83718; 84075; 84132; 84153; 84155; 84295; 84443; 84450; 84460; 84478; 84520; 85025